=== PATIENT | male | born 1980 ===

== ENCOUNTER 2017-07-23 12:44 | Emergency (ER) | payer MEDICAID ==
[2017-07-23 13:21] VITALS: TEMP 98.2
--- NOTE | 2017-07-23 13:46 | RAD ---
PROCEDURE: Radiographs of the Right Shoulder HISTORY: atraumatic pain COMPARISON: None available. FINDINGS: BONES: No acute displaced fracture. The distal clavicle and underlying ribs appear intact. JOINTS: No acute dislocation. Tiny calcifications adjacent to the humeral head compatible with calcific tendinitis. SOFT TISSUES: Soft tissues appear unremarkable. No evidence of radiopaque foreign body. IMPRESSION: Tiny calcifications adjacent to the humeral head compatible with calcific tendinitis.
--- NOTE | 2017-07-23 13:52 | C.PDOC ---
History Of Present Illness 36 year old female presents to the ED with complaints of right shoulder pain for one month. 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 He is right hand dominant and notes he did not have insurance previously. Patient went to a physical therapist and received a steroid injection with no improvement. He is taking Motrin and has begun to feel abdominal pain which he believes is connected to amount of Motrin he is taking. Patient is unable to sleep through the night due to pain and denies weakness, numbness, or sensory changes. Time Seen by Provider: 07/23/17 13:02 Chief Complaint (Nursing): Upper Extremity Problem/Injury History Per: Patient History/Exam Limitations: no limitations Onset/Duration Of Symptoms: Persistent (1 month ) Current Symptoms Are (Timing): Still Present Quality: "Pain" Recent travel outside of the [place]: No Past Medical History Reviewed: Historical Data, Nursing Documentation, Vital Signs Vital Signs: Last Vital Signs Temp 98.2 F 07/23/17 13:07 Pulse 65 07/23/17 14:09 Resp 18 07/23/17 14:09 BP 110/70 07/23/17 14:09 Pulse Ox 99 07/23/17 14:09 - Medical History PMH: Anxiety, Asthma Family History: States: Unknown Family Hx - Social History Hx Alcohol Use: Yes Hx Substance Use: No - Immunization History Hx Tetanus Toxoid Vaccination: No Hx Influenza Vaccination: No Hx Pneumococcal Vaccination: No Review Of Systems Constitutional: Negative for: Fever, Chills Cardiovascular: Negative for: Chest Pain Respiratory: Negative for: Shortness of Breath Gastrointestinal: Negative for: Nausea, Vomiting Musculoskeletal: Positive for: Shoulder Pain (right shoulder pain ) Neurological: Negative for: Weakness, Numbness Physical Exam - Physical Exam Appears: Non-toxic, No Acute Distress Skin: Warm, Dry Head: Atraumatic Eye(s): bilateral: Normal Inspection, EOMI Oral Mucosa: Moist Neck: Supple Chest: Symmetrical, No Deformity Cardiovascular: Rhythm Regular, No Murmur Respiratory: Normal Breath Sounds, No Rhonchi, No Wheezing Extremity: No Normal ROM (decreased ROM secondary to pain ), Tenderness ( tenderness of the right shoulder ), Capillary Refill (good capillary refill, less than two seconds ) Pulses: Left Radial: Normal, Right Radial: Normal ED Course And Treatment O2 Sat by Pulse Oximetry: 98 (room air ) - Other Rad Right Shoulder X-ray X-Ray: Viewed By Me, Read By Radiologist Interpretation: FINDINGS: BONES: No acute displaced fracture. The distal clavicle and underlying ribs appear intact. JOINTS: No acute dislocation. Tiny calcifications adjacent to the humeral head compatible with calcific tendinitis. SOFT TISSUES: Soft tissues appear unremarkable. No evidence of radiopaque foreign body. IMPRESSION: Tiny calcifications adjacent to the humeral head compatible with calcific tendinitis. Progress Note: Right shoulder X-ray was performed and patient was given percocet. Patient was instructed to follow up with orthopedist. Disposition - Disposition Referrals: Frederic Roca III, MD [Staff Provider] - [facility] [Outside] [employer] [place] [Outside] Disposition: HOME/ ROUTINE Disposition Time: 13:51 Condition: STABLE Additional Instructions: Follow up with Orthopedist within 2-3 days. Return to Ed if feel worse. Prescriptions: Diclofenac Potassium 50 mg PO BID #20 tablet Lidocaine 4% [Lidocaine 4% 50 ml Topical (or)] 1 appl TOP QID #1 bottle Famotidine [Pepcid] 20 mg PO BID #20 tab predniSONE [predniSONE Tab] 2 tab PO DAILY #8 tab Instructions: Shoulder Pain (ED) Forms: [employer] ([place]) - Clinical Impression Clinical Impression: Shoulder pain - Scribe Statement The provider has reviewed the documentation as recorded by the Scribe Elyssa Garcia All medical record entries made by the Scribe were at my direction and personally dictated by me. I have reviewed the chart and agree that the record accurately reflects my personal performance of the history, physical exam, medical decision making, and the department course for this patient. I have also personally directed, reviewed, and agree with the discharge instructions and disposition.
[2017-07-23] MEDS ORDERED: Oxycodone/Acetaminophen 5/325 mg Tab PO STA (13:59)
[2017-07-23] MEDS ORDERED: Oxycodone/Acetaminophen 5/325 mg Tab ONE (14:05)
[2017-07-23 14:09] VITALS: BP 110/70; PULSE 65; RESP 18
[2017-07-23 16:57] VITALS: O2SAT 98
== END 2017-07-23 14:14 | disposition home or self-care (01) ==
LOC: C.ER 12:44
DX: M25.511 Pain in right shoulder (principal)